=== PATIENT | male | born 1990 ===

== ENCOUNTER → 2018-09-29 | Outpatient (CLI) | payer SELFPAY ==
[2018-10-02 01:08] LABS: CHLAMYDIA TRACHOMATIS, NAA Negative (Negative); NEISSERIA GONORRHOEAE, NAA Negative (Negative)
== END | disposition home or self-care (01) ==
LOC: LAB 19:51 → LAB SHORT 19:51
PROVIDERS: Physician Assistant
DX: R30.0 Dysuria (principal)
CPT/HCPCS: 87491; 87591